=== PATIENT | female | born 1985 | race Two or more races ===

== ENCOUNTER 2017-07-05 14:19 | Emergency (ER) | payer OTHER ==
[~2017-07-05] VITALS: Ht 157.5 cm; Wt 67.1 kg
[2017-07-05 14:25] VITALS: BP 138/94
== END 2017-07-05 16:02 | disposition home or self-care (01) ==
LOC: ED 15:50
DX: S90.32XA Contusion of left foot, initial encounter (principal); X50.1XXA Overexertion from prolonged static or awkward postures, initial encounter; Y93.89 Activity, other specified; Y92.410 Unspecified street and highway as the place of occurrence of the external cause; Y99.8 Other external cause status
CPT/HCPCS: 99284